=== PATIENT | male | born 1950 | race Caucasian/White ===

== ENCOUNTER → 2019-12-01 | Day surgery (SDC) | payer MEDICARE, BC ==
--- NOTE | 2019-11-30 09:26 | Pre Op History & Physical ---
DATE OF SURGERY: December 01, 2019. CHIEF COMPLAINT: Right otitis media with effusion. HISTORY OF PRESENT ILLNESS: This is a 69 years old male who has been having decreased hearing in the left ear since February of 2019. The patient has no surgery to the ear. He has been a little off balance. The patient denies any tinnitus. He denies any vertigo. He has no surgery to the ear. He has been treated with multiple antibiotics with no improvement. The patient on examination was noted to have effusion in the left ear. 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 Speech discrimination was 92% on the right side and 84% on the left. A CT scan of the paranasal sinuses that was done showed the patient has chronic sinusitis, but also show effusion in the left middle ear. The right middle ear did not show any abnormality. The patient was suggested to have myringotomy and tube on the left side since March of last year. The patient has been reluctant for the procedure, so he has been treated over the past 6 months with more antibiotics, nasal spray with persistent and no improvement of the condition. REVIEW OF SYSTEMS: System review show no recent cardiovascular, respiratory, or GI problem. PAST MEDICAL HISTORY: The patient has type 2 diabetes, hypertension, and coronary artery disease. The patient has a history of normal-pressure hydrocephalus. PAST SURGICAL HISTORY: The patient has previous gastric bypass surgery and cardiac bypass surgery, he has back surgery, tonsillectomy and cataract surgery. ALLERGIES: THE PATIENT GETS NAUSEATED WITH AUGMENTIN AND CODEINE MAKES HIM ITCH. MEDICATIONS: He is on , levothyroxine, atorvastatin, metformin, metoprolol, donepezil, memantine, amlodipine, gabapentin, tamsulosin, , probiotic and multivitamin. SOCIAL HISTORY: He is a nonsmoker and a social drinker. FAMILY HISTORY: Noncontributory. PHYSICAL EXAMINATION: VITAL SIGNS: On examination, the patient's vital signs were within normal limits. He was seen with his . HEENT: Ear exam show normal tympanic membrane on the right side with effusion on the left. Nasal exam showed deviated nasal septum on the right side about 20%. Oropharynx and oral cavity showed no tonsils. NECK: Showed no lymph node or thyroid palpable. CHEST: Showed good air entry bilaterally. CARDIOVASCULAR: Showed S1 and S2. No murmur noted. DIRECTOR PHONE: Cranial nerves II through XII were within normal limits. ASSESSMENT AND PLAN: Mr. Stewart has left otitis media for almost nine months. He has been resistant to conservative therapy. The suggested treatment is possible bilateral myringotomy and tubes and nasal endoscopy and biopsy of the nasopharynx and other necessary procedure. Complication of procedure includes, but not limited to bleeding, infection, TM perforation, persistent drainage from the ear, hearing loss, recurrence of the ear infection along with hypernasal speech, nasal regurgitation of food, airway distress, persistence of the problem and epistaxis. Alternatives will be continued observation, continue antibiotic therapy, topical nasal steroid therapy, systemic steroid therapy, decongestant and myringotomy and tubes on the left side in the office setting. The patient has been seen by Dr. Jimenez for cardiac clearance. Dr. Jimenez would not agree for the patient to take off the aspirin before surgery. I have explained to the patient that he may have more oozing and a few droplets of blood may clog up his myringotomy and tube at the time of procedure or afterwards. The patient and his have elected to undergo the surgical procedure. Xavier Oscar MD [facility]/MODL /[id number] cc:
[~2019-12-01] MED LIST: AMLODIPINE BESYL5 MG PO; ARICEPT5 MG PO; ASPIR 8181 MG PO; ATORVASTATIN CA20 MG PO; EPHEDRINE SULFATE INJ 50 MG/ML VIAL ONE; FENTANYL CITRATE/PF 100MCG/2 ML INJ ONE; FLOMAX0.4 MG PO; GABAPENTIN300 MG PO; IRON PO; LEVOTHYROXINE112 MCG PO; LIDOCAINE HCL 2% LOCAL INJ 5 ML SDV VIAL INJ ONE; METFORMIN HCL500 M2 PO; METOPROLOL SUCC50 MG PO; MULTI-VITAMIN1 EACH PO; MYRBETRIQ50 MG PO; NAMENDA10 MG PO; OFLOXACIN 0.3% (OTIC SOL) 5 ML BTL ONE; ONDANSETRON HCL INJ 2MG/ML 2ML 2 MG/ML VIAL ONE; OXYMETAZOLINE HCL 0.05% NAS 1 SPRAY BTL ONE; PROBIOTIC & AC1 EACH PO; PROPOFOL IV EMULSION 10 MG/ML 20 ML VIAL ONE; SEVOFLURANE INHAL SOLN 250 ML PEN BTL ONE; TOUJEO SOL300 UNIT/1 SC
--- OUTSIDE RECORDS SUMMARY | 2019-12-01 08:06 | XMS REPORT ---
Author Author [facility] Address Unknown Phone Unavailable Care Team Providers Care Air Traffic Supervisor Name Role Phone UNKNOWN, REFERRING PP Unavailable Problems This patient has no known problems. Allergies, Adverse Reactions, Alerts This patient has no known allergies or adverse reactions. Medications This patient has no known medications. Encounters Start Date/Time End Date/Time Encounter Type Admission Type Attending Clinicians Care Facility Care Department Encounter ID 2017-11-21 16:20:00 2017-11-21 16:20:00 Emergency [facility] [id number] Results Test Description Test Time Test Comments Text Results Atomic Results Result Comments NM Myocardial SPECT Rest and Stress 2018-10-06 16:42:42 Patient: CONI CARUSO Date/Time10/06/2018 13:00 CSTReason for ExamAbnormal EKGReportNUCLEAR MEDICINE GATED SPECT MYOCARDIAL PERFUSION STUDY AT REST AND STRESS PROTOCOL patient is a 68-year-old male with chest pain hypertension and the study was performed using 40 mCi of technetium 99 labeled Cardiolite using the Lexiscan protocol.TECHNIQUE :The study was performed employing imaging both with the patient at rest and again after the patient had completed a stress protocol. Images were reconstructed in three orthogonal planes with 3D imaging reconstructions also performed.COMMENT: Patient is a 68 - year-old male . Study was performed using 40 mCi of technetium 99 labeled Cardiolite.ADEQUACY OF THE STRESS: Stress was performed with IV Lexiscan protocol.LEFT VENTRICULAR PERFUSION: Normal. No evidence of stress induced defects noted.RIGHT VENTRICULAR ACTIVITY: Not increased.LEFT VENTRICULAR CAVITY SIZE: Normal and stable with stress.GATED FINDINGS: Post-stress LVEF 70 %.IMPRESSION:NORMAL STUDY. Final Dictated by: MD Barajas S SatheeshaDictated DT/TM: 10/06/2018 4:40 pmSigned by: MD Barajas S SatheeshaSigned (Electronic Signature): 10/06/2018 4:[address] Angio Neck 2018-10-06 10:45:30 Patient: CONI CARUSO Date/Time10/06/2018 10:00 CSTReason for Exameval carotid stenosis seen on uss;Altered level of consciousnessReportEX AM: CT ANGIOGRAM OF THE NECKINDICATION: Altered level of consciousnessCOMPARISON: Ultrasound dated October 02, 2018TECHNIQUE:Axial CT images of the neck were obtained between the aortic arch and the skull base during intravenous infusion of iodinated contrast for the purposes of CT angiography. Coronal and sagittal MIP images were submitted for review. The source images are also presented for interpretation.IV contrast: 100 cc of Omnipaque 350DLP: 437.31 mGy-cmFINDINGS:NECK CTA:Aortic arch: The great vessels originate from the aortic arch in the standard configuration. No origin stenosis is identified. The vertebral artery origins are patent bilaterally.Carotid arteries:The common carotid arteries are normal in appearance. There are atherosclerotic calcifications of the carotid bifurcations with no flow-limiting stenosis. The external carotid arteries are normal. The cervical internal carotid arteries are normal with no focal stenosis.Vertebral arteries:The vertebral arteries have a normal course, caliber and contour.There are atherosclerotic calcifications of the bilateral intracranial carotid siphons with mild flow-limiting stenosis on the right.The visible intracranial and extracranial venous structures are normal.The soft tissues of the neck and other incidental structures are normal.There are patchy parenchymal opacities within both upper lobes which likely represents pulmonary edema.IMPRESSION:1. Atherosclerotic calcifications of both intracranial carotid siphons with mild flow-limiting stenosis on the right.2. Atherosclerotic calcifications of both carotid bifurcations with no flow-limiting stenosis.3. Parenchymal opacities in both upper lobes which likely represents pulmonary edema.(All qualitative and quantitative assessments of carotid bifurcation and proximal internal carotid artery stenosis are made referencing the distal internal carotid artery {NASCET criteria}.)LOCATION: [id number] Date/Time10/06/2018 10:[address] exam was performed according to our departmental dose optimization program, which includes automated exposure control, adjustment of the mA and/or kV according to the patient size and/or use of iterative reconstructive technique. Final Dictated by: Dahse, MD, Gissell CDictated DT/TM: 10/06/2018 10:40 amSigned by: MD Schilling Melanie CSigned (Electronic Signature): 10/06/2018 10:45 am US Carotid Duplex Bilateral 2018-10-03 07:48:37 Patient: CONI CARUSO Date/Time10/03/2018 00:50 CSTReason for ExamSyncopeReportCAROTID DOPPLERLOCATION CODE: R 16HISTORY: SyncopeTECHNIQUE: Static sonographic color duplex Doppler images with spectral analysis are provided for interpretation. No physician participation occurred.FINDINGS:There is heavy atherosclerotic plaque at the carotid bi furcations bilaterally, greater on the right. There is approximately 46% area reduction at the right carotid bulb. No minimal area reduction at the left carotid bulb less than 20%.Peak Systolic Velocity Right Carotid Left CarotidICA 112 cm/sec 126 cm/secCCA 111 cm/sec 109 cm/secECA 102 cm/sec 261 cm/secICA/CCA ratio 1.0 1.2Vertebral flow is antegrade bilaterally.IMPRESSION:1. Heavy atherosclerotic plaque at the carotid bifurcations bilaterally, greater on the right. Approximately 46% area reduction at the right carotid bulb. Luminal area reduction at the left carotid bulb less than 20%.2. ICA/CCA ratio maintained however within normal limits bilaterally.3. High velocities at the left external carotid artery as well, reflecting turbulent flow.Estimated (diameter reduction) with grayscale and color Doppler ultrasound based on similar criteria as NASCET criteria in reference to peak systolic velocity measurements. Final Dictated by: MD Jessa, Carolyn FDictated DT/TM: 10/03/2018 7:42 amSigned by: MD Jessa, Carolyn FSigned (Electronic Signature): 10/03/2018 7:48 am XR Chest 1 View Frontal 2018-10-02 16:52:39 Patient: CONI CARUSO Date/Time10/02/2018 16:11 CSTReason for ExamShortness of breathReportCHEST 1 VIEWCLINICAL INFORMATION: Shortness of breathCOMPARISON: September 30, 2018FINDINGS:A right subclavian central line terminates in the superior vena cava. Median sternotomy wires are noted.The cardiac silhouette is upper normal in size. Perihilar opacities and congestive changes are redemonstrated but are significantly improved from the comparison study. No pneumothorax or pleural effusion is present.IMPRESSION:Perihilar opacities likely reflect edema. The overall appearance has improved from the comparison study.LOCATION: R16 Final Dictated by: MD Johnson Adam FDictated DT/TM: 10/02/2018 4:50 pmSigned by: MD Johnson Adam FSigned (Electronic Signature): 10/02/2018 4:52 pm XR Chest 1 View Frontal 2018-09-30 08:39:16 Patient: CONI CARUSO Date/Time09/30/2018 03:32 CSTReason for ExamET tube placementReportCHEST 1 VIEWCLINICAL INFORMATION: ET tube placementCOMPARISON: September 29, 2018FINDINGS:The tip of the endotracheal tube terminates 4.5 cm from the rome. A right subclavian vein central line terminates in the superior vena cava.The cardiac silhouette is upper normal in size. Extensive perihilar and bibasilar opacities have increased from the comparison study. No pneumothorax is identified. Atherosclerotic calcifications are present in the aorta. Post-CABG changes are noted.IMPRESSION:1. The endotracheal tube terminates 4.5 cm from the rome.2. Increasing pulmonary edema pattern.LOCATION: R16 Final Dictated by: MD Johnson Adam FDictated DT/TM: 09/30/2018 8:37 amSigned by: MD Johnson Adam FSigned (Electronic Signature): 09/30/2018 8:[address] Spine Cervical w/o Contrast 2018-09-29 20:19:00 Patient: CONI CARUSO Date/Time09/29/2018 17:50 CSTReason for ExamInjuryReportEXAM: CT Spine Cervical w/o ContrastCLINICAL INFORMATION: Injury. Unresponsive. Possible neck trauma. Dictation Location: [id number]:Technique: Thin section axial scans were reviewed in bone and soft tissue windows. Sagittal and coronal computer-generated reconstructions were made. Dosage reduction and image optimization techniques were used.Findings: Tracheal intubation is noted. The vertebral body heights are maintained with mild to moderate spondylosis at C5-6 with interspace and foraminal narrowing. The prevertebral space and odontoid appear intact. There is mild cervical dorsal levo convexity. No acute fracture, destructive lesion, or subluxation is appa rent. There is mild facet arthropathy. No apparent focal soft disc herniation is identified.IMPRESSION:1. Spondylosis.2. No acute finding identified. Final Dictated by: MD Little Andrew GDictated DT/TM: 09/29/2018 8:17 pmSigned by: MD Little Andrew GSigned (Electronic Signature): 09/29/2018 8:[address] Brain/Head w/o Contrast 2018-09-29 20:05:48 Patient: CONI CARUSO Date/Time09/29/2018 17:55 CSTReason for ExamStrokeReportCLINICAL INFORMATION: Stroke. Unresponsive..Dictation Location: R 16COMPARISON: No prior.Technique: CT head was done in the usual fashion. Appropriate dose reduction and image optimization techniques were used. DLP 1483 mGy-cm. Findings: Mild motion artifact. No focal scalp swelling identified. The skull base and cranium appear intact. There is mild generalized atrophy and deep white matter microvascular change. No midline shift, mass effect, hemorrhage, or abnormal extra-axial fluid collection. No intrinsic brain mass or recent ischemia.IMPRESSION:1. Mild motion artifact.2. No focal scalp swelling.3. Senescent brain changes.4. Definite CT evidence of acute ischemia was not identified however it should be noted that considerable motion artifact is present. If clinically indicated follow-up with MRI may be helpful. Final Dictated by: MD Little Andrew GDictated DT/TM: 09/29/2018 8:03 pmSigned by: MD Little Andrew GSigned (Electronic Signature): 09/29/2018 8:[address] Angio Chest 2018-09-29 19:25:01 Patient: CONI CARUSO Date/Time09/29/2018 18:00 CSTReason for ExamShortness of breathReportCLINICAL INFORMATION: Chest pain and shortness of breath.Dictation Location: R 16Comparison: No priors.Technique: Axial scans in lung and mediastinal windows during intravenous contrast administration. Multiple oblique and rotating reconstructions to evaluate the pulmonary arteries were done. Appropriate dose reduction and image optimization techniques were employed. DLP 3395 mGy-cm.FINDINGS: Patchy bibasilar atelectasis versus infiltrate. Small esophageal hiatus hernia. Calcific deposits in the coronary arteries with evidence of median sternotomy. The great vessels appear unremarkable including no evidence of pulmonary embolus. ET tube tip is above the rome. No thyroid mass identified. No mediastinal, hilar, or axillary adenopathy is seen. The right adrenal gland is mildly prominent at 1.6 x 2.8 cm.IMPRESSION:1. No evidence of pulmonary embolus.2. Hiatal hernia.3. Bibasilar atelectasis or infiltrate.4. Prominent right adrenal gland could be from an incidental adenoma.5. ET tube appears satisfactory. Final Dictated by: MD Little Andrew GDictated DT/TM: 09/29/2018 7:22 pmSigned by: MD Little Andrew GSigned (Electronic Signature): 09/29/2018 7:[address] Abdomen and Pelvis w/ Contrast 2018-09-29 19:09:45 Patient: CONI CARUSO Date/Time09/29/2018 18:10 CSTReason for ExamInjuryReportCLINICAL INFORMATION: Unresponsiveness..Dictation Location: R 16Comparison: No priors.Technique: Axial scans with sagittal and coronal reconstructions. Appropriate dosage reduction and image optimization techniques were used.FINDINGS: Patchy opacities in the lung lung bases could indicate atelectasis or infiltrate. There are dilated air- filled large and small bowel loops with stool present throughout the length of the colon. The gallbladder is distended. There is postsurgical change in the region of the stomach. The liver, spleen, pancreas and adrenal glands appeared unremarkable. No apparent nephrolithiasis. Small esophageal hiatus hernia. Calcific deposit in the aorta with no periaortic adenopathy or aneurysm. There is no apparent free air or fluid. Penile implant in place. No pelvic or inguinal adenopathy. Chronic compression deformity of L1 with degenerative change in the spine.IMPRESSION:1. Patchy bibasilar atelectasis or infiltrate.2. Dilated bowel loops with stool present throughout the colon. Appendix was not definitely identified however no inflammatory change was found in the right lower quadrant.4. No evidence of urolithiasis.5. Postsurgical change in the region of the stomach.6. Small esophageal hiatus hernia.7. Penile implant.8. Chronic compr ession deformity of L1.9. Follow-up may be needed if symptoms continue. Final Dictated by: MD Little Andrew GDictated DT/TM: 09/29/2018 7:06 pmSigned by: MD Little Andrew GSigned (Electronic Signature): 09/29/2018 7:09 pm XR Chest 1 View Frontal 2018-09-29 17:32:00 Patient: CONI CARUSO Date/Time09/29/2018 17:25 CSTReason for ExamCHF (Congestive Heart Failure), knownReportCHEST 1 VIEWCLINICAL INFORMATION: CHF (Congestive Heart Failure), knownCOMPARISON: NoneFINDINGS:The tip of the endotracheal tube terminates 4.4 cm from the rome. A right subclavian central line tip projects over the superior vena cava. Post-CABG changes are noted.The lungs are well-expanded and clear. No airspace consolidation is seen. The heart size is normal. The bones are intact. Median sternotomy wires are present.IMPRESSION:No acute cardiopulmonary finding is identified.LOCATION: R16 Final Dictated by: MD Johnson Adam FDictated DT/TM: 09/29/2018 5:30 pmSigned by: MD Johnson Adam FSigned (Electronic Signature): 09/29/2018 5:32 pm XR CHEST 1 VIEW 2017-11-21 17:20:30 CHEST SINGLE VIEW:COMPARISON: None availableCLINICAL INFORMATION: Altered mental status. The study is limited by rotation. There are postoperative changes fromcoronary artery bypass grafting. Cardiomediastinal structures are withinnormal limits. No pleural fluid or pulmonary infiltrates areidentified. The bony architecture appears intact, where adequatelyseen.IMPRESSION: 1. Postop changes.2. No acute cardiopulmonary process is identified. CT HEAD OR BRAIN WO CONTRAST 2017-11-21 17:06:46 CT BRAIN WITHOUT CONTRAST:CLINICAL INFORMATION: Altered mental status. The study was performedwithin 24 hours of the patient's arrival at the hospital.COMPARISON: None.COMMENT:Axial images of the brain were obtained without contrast administration.Radiation dose lowering techniques were used according to Rohith.There is prominence of the ventricles, cisterns, and sulci indicatingage-related atrophy. There is mild hypoattenuation of theperiventricular white matter tracks indicating chronic ischemic sequela.There is no intracranial hemorrhage or mass effect. There are noextra-axial fluid collections. No evidence of acute cerebral infarction.Bony structures are intact.IMPRESSION:1. Age-related atrophy.2. There is no acute intracranial process.
[2019-12-01 10:35] VITALS: BP 125/82
--- NOTE | 2019-12-01 14:41 | Operative Report ---
DATE OF PROCEDURE: 12/01/2019 SURGEON: Xavier Oscar MD CHIEF COMPLAINT: Left otitis media. POSTOPERATIVE DIAGNOSIS: Left otitis media. OPERATIVE PROCEDURES: Left myringotomy and tubes. Rigid nasal endoscopy. Biopsy of left nasopharynx and the examination under anesthesia of the right ear. ANESTHESIA: [facility]. INDICATIONS: This 69-year-old male has decreased hearing in the left ear for about a year. The patient was noted to have effusion in the left ear. He had an audiogram that showed that he has some mixed hearing loss, [id number] on the left side with [id number] sensorineural hearing loss on the right. CT scan of paranasal sinuses also showed the patient has effusion in the left ear. The patient has been treated with multiple antibiotics with no improvement. It was decided myringotomy and tube in the left with examination under anesthesia on the right and rigid nasal endoscopy with biopsy of the nasopharynx on the left side, and other necessary procedure will be beneficial for him. DESCRIPTION OF PROCEDURE: The patient was taken to the operating room, put under general anesthesia, and LMA airway created. The right ear was examined, ear canal was debrided. The TM was noted to be normal. The TM was not disturbed on the right side. The left ear was examined. The canal was debrided. The myringotomy was done in the anterior-inferior quadrant. Serous effusion was noted in the middle ear cleft, this was suctioned out. Vo grommet tube was inserted. The nasal endoscopy was performed. The nose was injected with Afrin. The nasal cavities on both side were examined. No abnormality was noted. The nasopharynx was examined. The scar was noted at the nasopharynx, but no other abnormality was noted. Using a Deondre-Cut forceps, the left nasopharynx was biopsied and sent for permanent section. The patient tolerated the above procedure well with minimal blood loss. He was able to be transferred to recovery room in stable condition. Xavier Oscar MD [facility]/MODL /[id number]
== END | disposition home or self-care (01) ==
LOC: OR 08:03
PROVIDERS: ATTEND Otolaryngology Otolaryngology/Facial Plastic Surgery
DX: H90.6 Mixed conductive and sensorineural hearing loss, bilateral (principal); H65.22 Chronic serous otitis media, left ear; I25.810 Atherosclerosis of coronary artery bypass graft(s) without angina pectoris; I10 Essential (primary) hypertension; E03.9 Hypothyroidism, unspecified; E11.9 Type 2 diabetes mellitus without complications; I35.0 Nonrheumatic aortic (valve) stenosis; Z95.1 Presence of aortocoronary bypass graft
CPT/HCPCS: 31237; 69399; 69436; 88305; 88313; J2001; J2405; J2704; J3010